=== PATIENT | male | born 1965 | race Caucasian/White ===

== ENCOUNTER 2021-08-26 14:19 | Inpatient (IN) | payer BC, OTHER ==
[2021-08-26] VITALS (13 sets, daily range): BP systolic 122–157; BP diastolic 68–88
[~2021-08-26] VITALS: Ht 172.7 cm; Wt 97.3 kg
[2021-08-26] MEDS ORDERED: pantoprazole IV 80 MG in normal saline 100ml IV soln 100 ML IV ONE (14:25)
[2021-08-26] MEDS ORDERED: pantoprazole 40MG/NS 100ML BAG 100 ML IV ONE (14:25)
[2021-08-26] MEDS ORDERED: normal saline 1000ML IV soln IV ONE (14:25)
[2021-08-26 14:46] LABS: BASOPHILS # (AUTO) 0.1 X10'3 (0-0.2); BASOPHILS % (AUTO) 1.3 % (0-1); EOSINOPHILS # (AUTO) 0.3 X10'3 (0-0.9); EOSINOPHILS % (AUTO) 5.3 % (0-6); HEMOGLOBIN 7.1 g/dl (14.0-17.9); LYMPHOCYTES # (AUTO) 1.3 X10'3 (1.1-4.8); MEAN CORPUSCULAR HGB CONC 34.4 g/dL (33.0-36.5); MEAN PLATELET VOLUME 6.7 FL (7.4-10.4); MONOCYTES # (AUTO) 0.6 X10'3 (0-0.9); NEUTROPHILS # (AUTO) 3.1 X10'3 (1.8-7.7); NEUTROPHILS % (AUTO) 57.4 % (42-75); PLATELET COUNT 275 X10'3 (140-440); RED BLOOD COUNT 2.23 X10'6 (4.70-6.10); RED CELL DISTRIBUTION WIDTH 14.1 % (11.5-14.5); WHITE BLOOD COUNT 5.3 X10'3 (4.5-11.0)
[2021-08-26 14:58] LABS: APTT 21 SECONDS (22-32)
[2021-08-26 15:00] LABS: ALANINE AMINOTRANSFERASE 27 U/L (12-78); ALBUMIN 3.2 G/DL (3.4-5.0); ALBUMIN/GLOBULIN RATIO 1.1 (1.1-1.5); ALKALINE PHOSPHATASE 47 IU/L (46-116); ANION GAP 9 (8-16); ASPARTATE AMINO TRANSFERASE 22 U/L (10-37); BILIRUBIN,TOTAL 0.2 MG/DL (0.1-1.0); BLOOD UREA NITROGEN 19 MG/DL (7-18); BUN/CREATININE RATIO 28.4 (5.4-32.0); CALCIUM 7.7 MG/DL (8.5-10.1); CHLORIDE 106 MMOL/L (99-107); CREATININE 0.67 MG/DL (0.60-1.10); GLUCOSE 104 MG/DL (70-104); POTASSIUM 3.8 MMOL/L (3.5-5.1); SODIUM 141 MMOL/L (135-145); TOTAL CARBON DIOXIDE 26.1 MMOL/L (24-32); TOTAL PROTEIN 6.2 G/DL (6.4-8.2); eGFR > 90 ML/MIN
[2021-08-26 15:03] LABS: HEMATOCRIT 20.7 % (42.0-52.0)
[2021-08-26] MEDS ORDERED: magnesium hydroxide 30ml (MOM) UD suspension PO PRN (15:15)
[2021-08-26] MEDS ORDERED: morphine 2 MG/ML inj. syringe IV PRN ×2 (15:15)
[2021-08-26] MEDS ORDERED: ondansetron/PF 4mg/2ml inj IV PRN (15:15)
[2021-08-26] MEDS ORDERED: mag hydrox/Alum hydrox/simeth 30ml oral suspension PO PRN (15:15)
[2021-08-26] MEDS ORDERED: acetaminophen 325mg tablet PO PRN ×2 (15:15)
[2021-08-26 15:35] LABS: CLARITY,URINE CLEAR (Clear); COLOR,URINE YELLOW (Yellow); GLUCOSE, URINE NEGATIVE (Neg); KETONES,URINE NEGATIVE (Neg); LEUKOCYTE ESTERASE ,URINE NEGATIVE (Neg); NITRITES, URINE NEGATIVE (Neg); OCCULT BLOOD,URINE NEGATIVE (Neg); PROTEIN,URINE NEGATIVE (Neg); UROBILINOGEN,URINE 0.2 E.U/dL (0.2-1.0)
[2021-08-26 15:41] LABS: UA COLLECTION TYPE CLN CATCH MIDSTREAM
[2021-08-26] MEDS: pantoprazole IV 40 MG in normal saline 100ml IV soln 100 ML IV SCH ×2 (16:00→21:32)
[2021-08-26] MEDS ORDERED: MONT-40 PO (16:02)
[2021-08-26] MEDS ORDERED: MELO-102 PO (16:02)
[2021-08-26] MEDS ORDERED: ESOM40CA54 PO (16:02)
[2021-08-26] MEDS ORDERED: TRAM50TA2 PO (16:02)
[2021-08-26] MEDS ORDERED: ALBU8.5H17 IH (16:02)
[2021-08-26] MEDS ORDERED: ESZO3TAB44 PO (16:02)
--- NOTE | 2021-08-26 17:43 | NUR ---
GI LAB CAME AND PICKED UP PT, RUIZ RN ON PCU NOTIFIED THAT PT WILL BE GOING DIRECT FROM GI LAB TO [facility].
--- NOTE | 2021-08-26 17:44 | NUR ---
PT'S VITAL SIGN HAVE BEEN DOCUMENTED IN BLOOD TRANSFUSION LIST. BLOOD IS TRANFUSING AT THIS TIME THAT GI LAB TOOK PT. GI LAB REPORTS THEY WILL BE STARTING A SECOND NEW LINE AND WILL TRY TO GIVE THE SECOND BAG OF PROTONIX.
[2021-08-26] MEDS ORDERED: LIDOcaine Viscous 15ml cup ONE (17:49)
[2021-08-26] MEDS ORDERED: fentaNYL/PF 50MCG/1 ML 2ML syringe ONE (17:49)
[2021-08-26] MEDS ORDERED: MIDAZolam 1 MG/ML 5ML VIAL ONE (17:49)
[2021-08-26] MEDS ORDERED: PEG 3350/Na sulf,bicarb,Cl/KCl oral sol 4 liter bottle PO ONE (19:25)
[2021-08-26] MEDS: docusate sod 100mg capsule PO SCH (20:45)
[2021-08-27] VITALS (9 sets, daily range): BP systolic 97–155; BP diastolic 64–85
--- NOTE | 2021-08-27 06:49 | NUR ---
Problems reprioritized. Patient report given, questions answered & plan of care reviewed with BOOKER Galeana.
[2021-08-27 06:58] LABS: BASOPHILS % (AUTO) 1.1 % (0-1); EOSINOPHILS # (AUTO) 0.3 X10'3 (0-0.9); EOSINOPHILS % (AUTO) 7.3 % (0-6); HEMATOCRIT 22.3 % (42.0-52.0); HEMOGLOBIN 7.3 g/dl (14.0-17.9); LYMPHOCYTES # (AUTO) 1.3 X10'3 (1.1-4.8); MEAN CORPUSCULAR HEMOGLOBIN 30.4 PG (27.0-31.0); MEAN CORPUSCULAR HGB CONC 32.6 g/dL (33.0-36.5); MEAN CORPUSCULAR VOLUME 93.1 FL (78-98); MEAN PLATELET VOLUME 7.1 FL (7.4-10.4); MONOCYTES # (AUTO) 0.4 X10'3 (0-0.9); MONOCYTES % (AUTO) 8.5 % (2-12); NEUTROPHILS # (AUTO) 2.2 X10'3 (1.8-7.7); NEUTROPHILS % (AUTO) 53.1 % (42-75); PLATELET COUNT 247 X10'3 (140-440); RED CELL DISTRIBUTION WIDTH 14.3 % (11.5-14.5); WHITE BLOOD COUNT 4.2 X10'3 (4.5-11.0)
[2021-08-27 07:18] LABS: ALBUMIN 2.8 G/DL (3.4-5.0); ANION GAP 6 (8-16); BLOOD UREA NITROGEN 13 MG/DL (7-18); BUN/CREATININE RATIO 19.1 (5.4-32.0); CALCIUM 7.6 MG/DL (8.5-10.1); CHLORIDE 111 MMOL/L (99-107); CREATININE 0.68 MG/DL (0.60-1.10); GLUCOSE 96 MG/DL (70-104); SODIUM 143 MMOL/L (135-145); TOTAL CARBON DIOXIDE 26.3 MMOL/L (24-32); eGFR > 90 ML/MIN
[2021-08-27] MEDS: docusate sod 100mg capsule PO SCH (08:00)
[2021-08-27] MEDS ORDERED: PEG 3350/Na sulf,bicarb,Cl/KCl oral sol 4 liter bottle PO ONE (09:35)
[2021-08-27 13:05] LABS: HEMATOCRIT 23.8 % (42.0-52.0); HEMOGLOBIN 7.9 g/dl (14.0-17.9); MEAN CORPUSCULAR HEMOGLOBIN 30.8 PG (27.0-31.0); MEAN CORPUSCULAR HGB CONC 33.4 g/dL (33.0-36.5); MEAN CORPUSCULAR VOLUME 92.3 FL (78-98); MEAN PLATELET VOLUME 6.9 FL (7.4-10.4); PLATELET COUNT 266 X10'3 (140-440); RED BLOOD COUNT 2.58 X10'6 (4.70-6.10); RED CELL DISTRIBUTION WIDTH 14.5 % (11.5-14.5); WHITE BLOOD COUNT 4.2 X10'3 (4.5-11.0)
[2021-08-27] MEDS ORDERED: fentaNYL/PF 50MCG/1 ML 2ML syringe ONE (15:24)
[2021-08-27] MEDS ORDERED: MIDAZolam 1 MG/ML 5ML VIAL ONE (15:25)
[2021-08-27] MEDS ORDERED: ESOM40CA54 PO (17:22)
--- NOTE | 2021-08-27 18:34 | NUR ---
Reviewed discharge paperwork and f/u care with pt. He states he has a PPI prescribed to him buy his doctor waiting for him at pharmacy. He will f/u with PCP. PIV DC'd, cannula intact no bleeding. Pt left with his belongings. Tele removed and returned.
== END 2021-08-27 18:03 | disposition home or self-care (01) | DRG 378 ==
LOC: ER 14:19 → ED HOLD 15:20 → PCU 3S 20:05
PROVIDERS: ADMIT Internal Medicine; ATTEND Internal Medicine
PROC: 0DB68ZX Excision of Stomach, Via Natural or Artificial Opening Endoscopic, Diagnostic (ICD-10-PCS; principal; 2021-08-26)
PROC: 30233N1 Transfusion of Nonautologous Red Blood Cells into Peripheral Vein, Percutaneous Approach (ICD-10-PCS; 2021-08-26)
PROC: 0DBP8ZX Excision of Rectum, Via Natural or Artificial Opening Endoscopic, Diagnostic (ICD-10-PCS; 2021-08-27)
PROC: 0DBL8ZX Excision of Transverse Colon, Via Natural or Artificial Opening Endoscopic, Diagnostic (ICD-10-PCS; 2021-08-27)
DX: K26.4 Chronic or unspecified duodenal ulcer with hemorrhage (principal); D62 Acute posthemorrhagic anemia; K29.71 Gastritis, unspecified, with bleeding; E11.9 Type 2 diabetes mellitus without complications; K44.9 Diaphragmatic hernia without obstruction or gangrene; K64.8 Other hemorrhoids; G89.4 Chronic pain syndrome; K62.1 Rectal polyp; F17.200 Nicotine dependence, unspecified, uncomplicated; K63.5 Polyp of colon; Z79.899 Other long term (current) drug therapy; Z98.1 Arthrodesis status
CPT/HCPCS: 36415; 36430; 43239; 45380; 45385; 71045; 80048; 80053; 81003; 83880; 85025; 85027; 85610; 85730; 86885; 86900; 86901; 86920; 87081; 93005; 99152; 99153; 99285; A4620; C1773; C9113; G0378; J2250; J3010; J3490; J7030; P9016